=== PATIENT | male | born 1960 | race African-American/Black ===

== ENCOUNTER 2019-07-06 10:32 | Emergency (ER) | payer SELFPAY ==
[~2019-07-06] VITALS: Ht 180.3 cm; Wt 111.1 kg
[2019-07-06 10:45] VITALS: BP 173/76
--- NOTE | 2019-07-06 11:01 | PHYS DOC ---
Past History Past Medical History: Hypertension Additional Past Surgical Histo: Bilateral knee surgery Smoking: Quit Greater Than 1 Year Alcohol Use: Occasionally Drug Use: Marijuana Adult General Chief Complaint Chief Complaint: EYE PROBLEMS HPI HPI Patient is a 59-year-old male with no significant past medical history presents to the emergency department with chief complaint of right eye pain. Patient states that he was using a tankage grinder to cut pipes about an hour ago and felt something hit his right eye. Patient states he was not wearing glasses. Patient denies pain at this time, denies sensation of any foreign object in his right eye but does appear to have irritation to the conjunctiva. Patient has not taken any medication before arriving. Patient denies any vision changes or problems with extraocular movement. Patient does not remember last tetanus shot. Denies any other trauma. Review of Systems Review of Systems Constitutional: Denies fever or chills Eyes: Reports redness and eye pain; denies vision loss HENT: Denies nasal congestion or sore throat Respiratory: Denies cough or shortness of breath Cardiovascular: Denies chest pain or palpitations GI: Denies abdominal pain, nausea, or vomiting : Denies dysuria or hematuria Musculoskeletal: Denies back pain or joint pain Integument: Denies rash or skin lesions Neurologic: Denies headache, focal weakness or sensory changes Complete systems were reviewed and found to be within normal limits, except as documented in this note. Physical Exam Physical Exam Constitutional: Well developed, well nourished, no acute distress, non-toxic appearance HENT: Normocephalic, atraumatic Eyes: PERRL, EOMI, surgeon antiviral hemorrhage noted on right medial aspect, no foreign objects seen with SLIT lamp examination on right side Neck: Normal range of motion, no tenderness, supple Lungs & Thorax: No respiratory distress, atraumatic Skin: Warm, dry, no erythema, no rash Extremities: No tenderness, ROM intact, no edema Neurologic: Alert and oriented X 3, no focal deficits noted Psychologic: Affect normal, judgement normal EKG EKG [] Radiology/Procedures Radiology/Procedures [] Course & Med Decision Making Course & Med Decision Making Patient is a 59-year-old male with no significant past medical history is presenting to the emergency department with chief complaint of eye pain. Patient was seen and evaluated at bedside. Physical exam was significant for subconjunctival hemorrhage on the right side, no foreign objects seen on simple examination. Fluorescein examination negative for corneal abrasions Slit lamp examination negative for foreign objects. Empiric antibiotic ointment applied. Patient stable for discharge with outpatient follow-up with PCP. Discussed findings and plan with patient, who acknowledges understanding and agreement. Dragon Disclaimer Dragon Disclaimer This electronic medical record was generated, in whole or in part, using a voice recognition dictation system. Departure Departure: Impression: Primary Impression: Conjunctival hemorrhage of right eye Disposition: HOME, SELF-CARE Condition: STABLE Referrals: PCP,NO (PCP) Patient Instructions: Subconjunctival Hemorrhage Scripts Erythromycin Base (Erythromycin) 1 Gm Oint...g. 0.25 INCH OP QID for eye injury for 5 Days, #1 TUBE Prov: SARAH HYDE DO 07/06/19 Slit Lamp Exam Procedure SLIT LAMP EXAMINATION: Indication: Right eye pain while grinding metal Procedure: The patient was placed in the appropriate position. Anesthesia was obtained with 2 drops of Tetracaine to right eye. Fluorescein staining was utilized. No fluorescein uptake noted on slit lamp exam. NO retained foreign body noted. No hyphema noted. The patient tolerated the procedure well and without difficulty. Complications: NONE SARAH HYDE DO Jul 06, 2019 11:01
[2019-07-06] MEDS ORDERED: FLUORESCEIN 1MG EYE STRIP. ONE (11:10)
[2019-07-06] MEDS ORDERED: ERYTHROMYCIN 0.5% OPHTH OINTMENT 1GM TUBE. ONE (11:10)
[2019-07-06] MEDS ORDERED: TETRACAINE 0.5% OPHTH SOLUTION 4ML BOTTLE. ONE (11:10)
[2019-07-06] MEDS: ERYTHROMYCIN 0.5% OPHTH OINTMENT 1GM TUBE. OD ONE (11:15)
[2019-07-06] MEDS: FLUORESCEIN 1MG EYE STRIP. OD ONE (11:18)
[2019-07-06] MEDS: TETRACAINE 0.5% OPHTH SOLUTION 4ML BOTTLE. OD ONE (11:18)
[2019-07-06] MEDS ORDERED: ERYT1OIN6 OP (11:46)
[2019-07-06] MEDS: DIPHTH,PERTUSS(ACELL),TET TOX 0.5 ML DISP.SYRIN. VAX IM ONE (11:46)
== END 2019-07-06 11:47 | disposition home or self-care (01) ==
LOC: ER 10:32
DX: H11.31 Conjunctival hemorrhage, right eye (principal); I10 Essential (primary) hypertension; Z87.891 Personal history of nicotine dependence
CPT/HCPCS: 90471; 90715; 99283